=== PATIENT | female | born 1970 | race Caucasian/White ===

== ENCOUNTER 2018-01-22 15:28 | Emergency (ER) | payer OTHER ==
[~2018-01-22] VITALS: Ht 157.5 cm; Wt 95.2 kg
[2018-01-22 15:29] VITALS: Ht 157.5 cm; Wt 95.2 kg
[2018-01-22 16:27] LABS: BASOPHIL % 0.4 % (0-2); PLATELET COUNT 199 x10^3mcL (130-400); RED CELL DISTRIBUTION WIDTH 13.3 % (11.5-14.5)
[2018-01-22 17:14] LABS: ALBUMIN 3.5 g/dL (3.4-5.0); ALKALINE PHOSPHATASE 72 U/L (46-116); ALT/SGPT 45 U/L (14-59); AST/SGOT 32 U/L (15-37); BILIRUBIN TOTAL 0.47 mg/dL (0.20-1.00); CALCIUM 8.9 mg/dL (8.5-10.1); CARBON DIOXIDE 27.4 mmol/L (21-32); CHLORIDE SERUM 104 mmol/L (98-107); CREATININE SERUM 0.6 mg/dL (0.6-1.0); GFR1 > 60 mL/min; GLUCOSE SERUM 124 mg/dL (74-106); POTASSIUM SERUM 3.8 mmol/L (3.5-5.1); SODIUM SERUM 141 mmol/L (136-145); TOTAL PROTEIN, SERUM 7.3 g/dL (6.4-8.2)
[2018-01-22 17:31] VITALS: BP 122/89
== END 2018-01-22 17:32 | disposition home or self-care (01) ==
LOC: ED 15:28
PROVIDERS: Emergency Medicine
DX: R55 Syncope and collapse (principal); J11.1 Influenza due to unidentified influenza virus with other respiratory manifestations
CPT/HCPCS: 87804; J7030

== ENCOUNTER 2018-01-23 23:12 | Inpatient (IN) | payer OTHER ==
[~2018-01-23] VITALS: Ht 157.5 cm; Wt 97.1 kg
[2018-01-24 00:28] LABS: BASOPHIL % 0.2 % (0-2); PLATELET COUNT 197 x10^3mcL (130-400); RED CELL DISTRIBUTION WIDTH 13.2 % (11.5-14.5)
[2018-01-24 00:39] LABS: CARBON DIOXIDE 24.6 mmol/L (21-32); CHLORIDE SERUM 102 mmol/L (98-107); CREATININE SERUM 0.6 mg/dL (0.6-1.0); GFR1 > 60 mL/min; GLUCOSE SERUM 129 mg/dL (74-106); POTASSIUM SERUM 3.5 mmol/L (3.5-5.1); SODIUM SERUM 138 mmol/L (136-145)
[2018-01-24 00:44] LABS: ALBUMIN 3.5 g/dL (3.4-5.0); ALKALINE PHOSPHATASE 65 U/L (46-116); ALT/SGPT 43 U/L (14-59); AST/SGOT 28 U/L (15-37); BILIRUBIN TOTAL 0.5 mg/dL (0.20-1.00); TOTAL PROTEIN, SERUM 7.2 g/dL (6.4-8.2)
[2018-01-24 01:15] VITALS: BP 145/81
[2018-01-24 01:18] LABS: UA SPECIFIC GRAVITY 1.025 (1.005-1.035); microscopic required? YES; urine erythrocyte 2+ (NEGATIVE)
[2018-01-24 01:27] LABS: AMPHETAMINE QUAL UR NONE DETECTED (NEG <=1000)
[2018-01-24 01:50] LABS: CHOLESTEROL/HDL RATIO 4.6; MAGNESIUM 1.5 mg/dL (1.8-2.4); PHOSPHOROUS 3.1 mg/dL (2.5-4.9)
[2018-01-24 01:57] LABS: T3 TOTAL 1.31 ng/mL
[2018-01-24 02:00] LABS: FREE T4 1.2 ng/dL (0.76-1.46); FREE THYROXINE INDEX 3.4 ug/dL (1.4-4.5); T4(THYROXINE) 10.4 ug/dL (4.7-13.3)
[2018-01-24 05:55] VITALS: BP 121/71
[2018-01-24 07:39] LABS: CALCIUM 8.5 mg/dL (8.5-10.1); CARBON DIOXIDE 26.5 mmol/L (21-32); CHLORIDE SERUM 105 mmol/L (98-107); CREATININE SERUM 0.6 mg/dL (0.6-1.0); GFR1 > 60 mL/min; GLUCOSE SERUM 160 mg/dL (74-106); POTASSIUM SERUM 3.9 mmol/L (3.5-5.1); SODIUM SERUM 140 mmol/L (136-145)
[2018-01-24 08:08] LABS: BASOPHIL % 0.2 % (0-2); PLATELET COUNT 182 x10^3mcL (130-400)
[2018-01-24 08:10] LABS: MAGNESIUM 1.6 mg/dL (1.8-2.4); PHOSPHOROUS 3.5 mg/dL (2.5-4.9)
[2018-01-24 10:12] VITALS: BP 132/79
[2018-01-24 14:00] VITALS: BP 136/73
[2018-01-24 17:27] VITALS: BP 133/78
[2018-01-24 20:29] VITALS: BP 146/82
[2018-01-25 05:05] VITALS: BP 147/95
[2018-01-25 06:27] LABS: BASOPHIL % 0.5 % (0-2); PLATELET COUNT 188 x10^3mcL (130-400); RED CELL DISTRIBUTION WIDTH 13.4 % (11.5-14.5)
[2018-01-25 06:51] LABS: CHLORIDE SERUM 112 mmol/L (98-107); CREATININE SERUM 0.5 mg/dL (0.6-1.0); GFR1 > 60 mL/min; GLUCOSE SERUM 124 mg/dL (74-106); MAGNESIUM 1.7 mg/dL (1.8-2.4); PHOSPHOROUS 2.4 mg/dL (2.5-4.9); POTASSIUM SERUM 3.6 mmol/L (3.5-5.1); SODIUM SERUM 147 mmol/L (136-145)
[2018-01-25] MEDS ORDERED: DIOVAN320 MG PO (09:28)
[2018-01-25 09:41] VITALS: BP 170/87
[2018-01-25 13:51] VITALS: BP 156/93
[2018-01-25] MEDS ORDERED: TAM75 PO (15:21)
[2018-01-25] MEDS ORDERED: ZITHROMAX Z-PA250 MG PO (15:21)
[2018-01-25] MEDS ORDERED: ROBDML PO (15:22)
[2018-01-25] MEDS ORDERED: LAC PO (15:22)
[2018-01-25 15:43] VITALS: BP 156/93
[2018-01-25 17:44] VITALS: BP 150/87
[2018-01-26 11:48] VITALS: Ht 157.5 cm; Wt 97.1 kg
== END 2018-01-25 18:15 | disposition home or self-care (01) | DRG 193 ==
LOC: ED 23:12 → DU 01-24 00:09
PROVIDERS: Emergency Medicine; Student in an Organized Health Care Education/Training Program
DX: J18.9 Pneumonia, unspecified organism (principal); N17.0 Acute kidney failure with tubular necrosis; J44.0 Chronic obstructive pulmonary disease with (acute) lower respiratory infection; J20.8 Acute bronchitis due to other specified organisms; Z88.6 Allergy status to analgesic agent; I10 Essential (primary) hypertension; E86.0 Dehydration; R31.9 Hematuria, unspecified; E83.42 Hypomagnesemia; R73.03 Prediabetes; E78.5 Hyperlipidemia, unspecified; J11.1 Influenza due to unidentified influenza virus with other respiratory manifestations
CPT/HCPCS: 83880; 84439; 87804; J0696; J1885; J1956; J3475; J7030; J7620; Q0092